=== PATIENT | female | born 1945 | race American Indian/Alaskan Native ===

== ENCOUNTER 2020-07-05 12:23 | Emergency (ER) | payer MEDICARE ==
[2020-07-05] MEDS ORDERED: ONDANSETRON 4 MG ODT TAB PO ONE (12:52)
--- NOTE | 2020-07-05 12:55 | Event Note ---
ED Screening Note Date of service: 07/05/20 Time: 12:53 ED Screening Note: 74 yr old female with pmhx of HTN, DM, HPLD, and some kind of dysrhythmia (she is not quite sure) presents to ED with c/o KRAUS, dizziness and elevated BP at home 200s/100s. Onset this after around 3pm. This initial assessment/diagnostic orders/clinical plan/treatment(s) is/are subject to change based on patients health status, clinical progression and re- assessment by fellow clinical providers in the ED. Further treatment and workup at subsequent clinical providers discretion. Patient/guardian urged not to elope from the ED as their condition may be serious if not clinically assessed and managed. Initial orders include: CBC CMP EKG TRop UA cxr
--- NOTE | 2020-07-05 13:26 | XRay Report ---
CHEST 1 VIEW 07/05/2020 1:11 PM INDICATION / CLINICAL INFORMATION: Shortness of breath, headache, dizziness. COMPARISON: One view of the chest from 05/14/2020. FINDINGS: SUPPORT DEVICES: None. HEART / MEDIASTINUM: Stable. LUNGS / PLEURA: Previously seen bilateral airspace opacities have resolved. No new significant abnorm ality of the lungs. No significant pleural effusion. No pneumothorax. ADDITIONAL FINDINGS: No significant additional findings. IMPRESSION: 1. No acute abnormality of the chest. Signer Name: Hawk Huynh MD Signed: 07/05/2020 1:22 PM Workstation Name: [id number]
--- NOTE | 2020-07-05 14:07 | Emergency Department Report ---
HPI - General Chief Complaint: Medical Clearance Time Seen by Provider: 07/05/20 12:51 - HPI HPI: This is a 74-year-old female who presents to the emergency department with a complaint of elevated blood pressure and a headache. Patient says that she woke up with a headache at around 4 AM this morning and checked her blood pressure and found it to be elevated with a systolic blood pressure of about 200. She describes the headache as a "swimming sensation", but the patient denies any vision change, slurred speech, numbness or paresthesias. Patient goes on to describe the headache both as a "dizzy headache" and an "anxiety headache." When she woke up and found the elevated blood pressure she took an amlodipine. She checked it again at 7 PM and it was still elevated. The patient has a past medical history of hypertension, diabetes, and severe anxiety with panic attacks. She says that this occurs often and she just recently had a CT scan of her head completed at [place] for similar symptoms. She denies any fever, chest pain, shortness of breath, lower extremity swelling, nausea, vomiting or diaphoresis. ED Past Medical Hx - Past Medical History Hx Hypertension: Yes Hx Diabetes: Yes Additional medical history: SVT - Surgical History Additional Surgical History: HYSTO - Social History Smoking Status: Never Smoker Substance Use Type: None - Medications Home Medications: Home Medications Medication Instructions Recorded Confirmed Last Taken Type ALPRAZolam [Xanax TAB] 0.25 mg PO Q8H PRN #20 tablet 05/21/20 Unknown Rx Aspirin [Aspirin BABY CHEW TAB] 81 mg PO QDAY #30 tab.chew 05/21/20 Unknown Rx AtorvaSTATin [Lipitor] 20 mg PO QHS #30 tablet 05/21/20 Unknown Rx Dexamethasone 6 mg PO DAILY #10 tablet 05/21/20 Unknown Rx Insulin Glargine [Lantus VIAL] 20 units SUB-Q QAM 30 Days units 05/21/20 Unknown Rx Insulin Glargine [Lantus VIAL] 20 units SUB-Q QHS 30 Days units 05/21/20 Unknown Rx Insulin Lispro [Humalog] 0 unit SUB-Q ACHS vial 05/21/20 Unknown Rx Insulin Lispro [Humalog] 4 unit SUB-Q ACHS vial 05/21/20 Unknown Rx Lisinopril/Hydrochlorothiazide 1 each PO QDAY #30 05/21/20 Unknown Rx [Zestoretic 10-12.5 mg Tablet] Metformin HCl [metFORMIN] 1,000 mg PO BID #60 05/21/20 Unknown Rx Metoprolol [Lopressor TAB] 50 mg PO BID #60 tablet 05/21/20 Unknown Rx Pantoprazole [Protonix TAB] 20 mg PO QDAC tablet. 05/21/20 Unknown Rx Sertraline [Zoloft] 50 mg PO QDAY #30 05/21/20 Unknown Rx amLODIPine 10 mg PO QDAY #30 tablet 05/21/20 Unknown Rx ED Review of Systems ROS: Stated complaint: HEADACHE/HBP/ABD PAIN Other details as noted in HPI Comment: All other systems reviewed and negative Constitutional: denies: chills, fever Eyes: denies: eye pain, vision change ENT: denies: ear pain, throat pain Respiratory: denies: cough, shortness of breath Cardiovascular: denies: chest pain, palpitations Gastrointestinal: denies: abdominal pain, vomiting Genitourinary: denies: dysuria, discharge Musculoskeletal: denies: back pain, arthralgia Skin: denies: rash, lesions Neurological: headache. denies: weakness, numbness, paresthesias Psychiatric: anxiety Physical Exam - Physical Exam Vital Signs: Vital Signs 07/05/20 12:39 Temperature 98.3 F Pulse Rate 74 Respiratory 20 Rate Blood Pressure 150/92 O2 Sat by Pulse 98 Oximetry Physical Exam: GENERAL: The patient is well-developed well-nourished. HENT: Normocephalic. Atraumatic. Patient has moist mucous membranes. EYES: Extraocular motions are intact. No nystagmus. NECK: Supple. Trachea is midline. CHEST/LUNGS: Clear to auscultation. There is no respiratory distress noted. HEART/CARDIOVASCULAR: Regular. There is no tachycardia. There is no murmur. ABDOMEN: Abdomen is soft, nontender. Patient has normal bowel sounds. SKIN: Skin is warm and dry. NEURO: The patient is awake, alert, and oriented. The patient is cooperative. The patient has no focal neurologic deficits. Normal speech. No facial asymmetry. Cranial nerves II through XII grossly intact. No pronator drift or dysmetria. MUSCULOSKELETAL: There is no tenderness or deformity. There is no limitation range of motion. ED Course Vital Signs 07/05/20 12:39 Temperature 98.3 F Pulse Rate 74 Respiratory 20 Rate Blood Pressure 150/92 O2 Sat by Pulse 98 Oximetry ED Medical Decision Making - Lab Data Result diagrams: 07/05/20 13:09 07/05/20 13:09 Lab Results 07/05/20 07/05/20 07/05/20 Range/Units 13:09 13:09 Unknown WBC 11.1 H (4.5-11.0) K/mm3 RBC 4.33 (3.65-5.03) M/mm3 Hgb 12.5 (10.1-14.3) gm/dl Hct 36.7 (30.3-42.9) % MCV 85 (79-97) fl MCH 29 (28-32) pg MCHC 34 (30-34) % RDW 15.6 H (13.2-15.2) % Plt Count 371 (140-440) K/mm3 Lymph % (Auto) 15.9 (13.4-35.0) % [place] % (Auto) 5.1 (0.0-7.3) % Eos % (Auto) 0.5 (0.0-4.3) % Baso % (Auto) 0.5 (0.0-1.8) % Lymph # (Auto) 1.8 (1.2-5.4) K/mm3 [place] # (Auto) 0.6 (0.0-0.8) K/mm3 Eos # (Auto) 0.1 (0.0-0.4) K/mm3 Baso # (Auto) 0.1 (0.0-0.1) K/mm3 Seg Neutrophils % 78.0 H (40.0-70.0) % Seg Neutrophils # 8.7 H (1.8-7.7) K/mm3 Sodium 139 (137-145) mmol/L Potassium 3.9 (3.6-5.0) mmol/L Chloride 98.8 (98-107) mmol/L Carbon Dioxide 28 (22-30) mmol/L Anion Gap 16 mmol/L BUN 9 (7-17) mg/dL Creatinine 0.7 (0.6-1.2) mg/dL Estimated GFR > 60 ml/min BUN/Creatinine Ratio 13 % Glucose 271 H (65-100) mg/dL Calcium 9.9 (8.4-10.2) mg/dL Magnesium 1.40 L (1.7-2.3) mg/dL Total Bilirubin 0.40 (0.1-1.2) mg/dL AST 15 (5-40) units/L ALT 13 (7-56) units/L Alkaline Phosphatase 62 (35-129) units/L Troponin T < 0.010 (0.00-0.029) ng/mL Total Protein 7.7 (6.3-8.2) g/dL Albumin 4.5 (3.9-5) g/dL Albumin/Globulin Ratio 1.4 % Urine Color Yellow (Yellow) Urine Turbidity Clear (Clear) Urine pH 6.0 (5.0-7.0) Ur Specific [place] 1.015 (1.003-1.030) Urine Protein <15 mg/dl (Negative) mg/dL Urine Glucose (UA) 150 (Negative) mg/dL Urine Ketones Neg (Negative) mg/dL Urine Blood Neg (Negative) Urine Nitrite Neg (Negative) Urine Bilirubin Neg (Negative) Urine Urobilinogen < 2.0 (<2.0) mg/dL Ur Leukocyte Esterase Neg (Negative) Urine WBC (Auto) 1.0 (0.0-6.0) /HPF Urine RBC (Auto) 1.0 (0.0-6.0) /HPF U Epithel Cells (Auto) 1.0 (0-13.0) /HPF Urine Bacteria (Auto) 1+ (Negative) /HPF Urine Mucus Few /HPF - Medical Decision Making This patient presents to the emergency department with a complaint of elevated blood pressure and a headache that started earlier this morning. She initially said that she had a blood pressure with a systolic of about 200. The patient's blood pressure upon arrival was 150/92. This headache is atypical and the patient describes it as a swimming feeling. On examination she does not have any focal, motor or sensory deficits and her cranial nerves are intact. The patient also attributes her hypertension and her symptoms to anxiety and panic attack, which the patient says that she gets frequently. Also, the patient snacked on something while in the emergency department and says that this resolved her headache and maybe she was just hungry. The patient had a CT scan of the head without contrast 2 weeks ago at [place]. For these reasons I did not feel that the patient required repeat CT imaging of the head at this time. Her labs were mostly unremarkable except for some mild hyperglycemia without evidence of diabetic ketoacidosis, and the patient had mild hypomagnesemia with a magnesium level of 1.4. She was given 2 g of magnesium sulfate. The patient was reevaluated multiple times of multiple hours and says she is feeling improved and asking for discharge home. She has been instructed to follow-up with her primary care physician and will return to the emergency department with any worsening of her symptoms or with any acute distress. Critical Care Time: No Critical care attestation.: If time is entered above; I have spent that time in minutes in the direct care of this critically ill patient, excluding procedure time. ED Disposition Clinical Impression: Hypomagnesemia HTN (hypertension) Qualifiers: Hypertension type: essential hypertension Qualified Code(s): I10 - Essential (primary) hypertension Disposition: TO HOME OR SELFCARE Is pt being admited?: No Condition: Stable Instructions: Hypomagnesemia, Hypertension, Adult, Hypertension (ED) Additional Instructions: Please follow-up with your primary care physician in the next few days. Take your medications as prescribed. Try to stay away from foods that are high in salt and caffeinated products. Keep a blood pressure log. Return to the emergency department with any worsening of your symptoms, new or concerning symptoms not addressed during this current emergency department visit, or with any acute distress. Referrals: RUTH MO MD [Primary Care Provider] - 3-5 Days Time of Disposition: 15:30
[2020-07-05 14:09] LABS: Alanine Aminotransferase 13 units/L (7-56); Albumin 4.5 g/dL (3.9-5); Blood Urea Nitrogen 9 mg/dL (7-17); Calcium 9.9 mg/dL (8.4-10.2); Hemolysis Index 3
[2020-07-05 14:10] LABS: BUN/Creatinine Ratio 13
[2020-07-05] MEDS ORDERED: MAGNESIUM SULFATE 2 GM/50 ML BAG IV ONE (14:11)
[2020-07-05 14:31] LABS: Basophils # (Auto) 0.1 K/mm3 (0.0-0.1); Basophils % (Auto) 0.5 % (0.0-1.8); Eosinophils # (Auto) 0.1 K/mm3 (0.0-0.4); Eosinophils % (Auto) 0.5 % (0.0-4.3); Hematocrit 36.7 % (30.3-42.9); Hemoglobin 12.5 gm/dl (10.1-14.3); Lymphocytes # (Auto) 1.8 K/mm3 (1.2-5.4); Lymphocytes % (Auto) 15.9 % (13.4-35.0); Mean Corpuscular HGB Conc 34 % (30-34); Mean Corpuscular Volume 85 fl (79-97); Monocytes # (Auto) 0.6 K/mm3 (0.0-0.8); Monocytes % (Auto) 5.1 % (0.0-7.3); Platelet Count 371 K/mm3 (140-440); Red Blood Count 4.33 M/mm3 (3.65-5.03); Red Cell Distribution Width 15.6 % (13.2-15.2)
[2020-07-05 15:38] LABS: Bacteria,Urine 1+ /HPF (Negative); Bilirubin,Urine NEG (Negative); Blood,Urine NEG (Negative); Color,Urine Yellow (Yellow); Mucus,Urine FEW /HPF; Protein,Urine <15 mg/dL mg/dL (Negative); Urobilinogen,Urine < 2.0 mg/dL (<2.0)
[2020-07-05 16:12] VITALS: BP 160/94
== END 2020-07-05 16:12 | disposition home or self-care (01) ==
LOC: ED 12:23
DX: E83.42 Hypomagnesemia (principal); I10 Essential (primary) hypertension; E11.9 Type 2 diabetes mellitus without complications; Z98.890 Other specified postprocedural states; Z79.4 Long term (current) use of insulin; Z79.899 Other long term (current) drug therapy
CPT/HCPCS: 36415; 71045; 80053; 81001; 83735; 84484; 85025; 96365; 99284; J3475